=== PATIENT | female | born 1955 | race Caucasian/White ===

== ENCOUNTER 2017-07-29 06:30 | Day surgery (SDC) | payer BC ==
[~2017-07-29] VITALS: Ht 152.4 cm; Wt 127.0 kg
[~2017-07-29 06:30] MED LIST: ALLERGY RELF10 M3 PO; ASPIRIN ENTERIC81 MG PO; COQ-10100 MG PO; COZAAR100 MG PO; FERROUS SULF325 M3 PO; LOSARTAN POTASS50 MG PO; METFORMIN1000 MG PO; METFORMIN850 MG PO; PRILOSEC40 MG PO; SYNTHROID175 MCG PO; VITAMIN B-122500 MCG SL; VYTORIN 10/201 TAB PO; WOMENS MULTI PO
[2017-07-29] MEDS ORDERED: LOPRESSOR 550 MG/TAB PO (07:17)
[2017-07-29 09:32] VITALS: BP 123/62
== END 2017-07-29 09:45 | disposition home or self-care (01) | DRG 812 ==
LOC: ENDO 06:30 → ORM 09:15 → ENDO 09:15
PROVIDERS: ATTEND Surgery
PROC: 0DB78ZX Excision of Stomach, Pylorus, Via Natural or Artificial Opening Endoscopic, Diagnostic (ICD-10-PCS; principal; 2017-07-29)
PROC: 0DBF8ZX Excision of Right Large Intestine, Via Natural or Artificial Opening Endoscopic, Diagnostic (ICD-10-PCS; 2017-07-29)
PROC: 3E0H8GC Introduction of Other Therapeutic Substance into Lower GI, Via Natural or Artificial Opening Endoscopic (ICD-10-PCS; 2017-07-29)
DX: D50.9 Iron deficiency anemia, unspecified (principal); K29.50 Unspecified chronic gastritis without bleeding; D12.2 Benign neoplasm of ascending colon; K44.9 Diaphragmatic hernia without obstruction or gangrene

== ENCOUNTER → 2018-04-12 | Outpatient (REF) | payer BC ==
[~2018-04-12] MED LIST changes: +LOPRESSOR 550 MG/TAB PO
== END | disposition home or self-care (01) | DRG 951 ==
LOC: MAMMO 07:23
PROVIDERS: ATTEND Internal Medicine
DX: Z12.31 Encounter for screening mammogram for malignant neoplasm of breast (principal)